=== PATIENT | female | born 1950 | race Caucasian/White ===

== ENCOUNTER 2023-01-16 11:50 | Outpatient (CLI) | payer MEDICARE, SELFPAY ==
--- NOTE | 2023-01-16 12:08 | US_ITS ---
WS: [id number] RENAL ULTRASOUND HISTORY: STAGE 4 CHRONIC RENAL DZ COMPARISON: None available. TECHNIQUE: 2-D and color Doppler imaging of the kidney submitted. Right kidney: 11.0 cm x 5.3 cm x 4.8 cm. Cortex: 1.2 cm Normal size kidney with normal echogenicity. Cortical cyst mid kidney measures 3.2 x 3.0 x 4.2 cm. No solid component. Left kidney: 9.4 cm x 4.2 cm x 4.6 cm. Cortex: 1.3 cm Normal size kidney. There are several small cortical cysts. The largest from the mid cortex measures 1.1 x 1.0 x 1.3 cm. No solid mass. Tiny amount of fluid at the renal pelvis. No hydronephrosis at thi s time. Aorta: Mild atherosclerosis. No aneurysm. Urinary Bladder: Normal distention. No intraluminal mass. US/US renal BI* [id number] IMPRESSION: 1. Normal size kidneys with no hydronephrosis. 2. Bilateral cortical renal cysts. Largest mid RIGHT kidney measures 3.2 x 3.0 x 4.2 cm.
== END 2023-01-16 11:51 | disposition home or self-care (01) ==
PROVIDERS: PCP Family Medicine; Visit Provider Family Medicine
DX: N18.4 Chronic kidney disease, stage 4 (severe) (principal); Q61.02 Congenital multiple renal cysts
CPT/HCPCS: 76770